=== PATIENT | male | born 1970 | race Caucasian/White ===

== ENCOUNTER 2017-09-20 15:45 | Emergency (ER) | payer SELFPAY ==
[~2017-09-20] VITALS: Ht 172.7 cm; Wt 65.0 kg
[2017-09-20 17:33] LABS: BASOPHILS % 0.4 % (0.0-2.0); EOSINOPHILS % 0.2 % (0.0-5.0); HEMATOCRIT. 32.7 % (42.0-52.0); HEMOGLOBIN. 10.9 g/dL (14.0-18.0); LYMPHOCYTES % 10.4 % (20.0-50.0); MEAN CORPUSCULAR HEMOGLOBIN 30.6 pg (28.0-32.0); MEAN CORPUSCULAR VOLUME 91.4 fL (80.0-94.0); MEAN PLATELET VOLUME 6.5 fl (7.4-10.4); MONOCYTES % 13.7 % (2.0-8.0); NEUTROPHILS % 75.3 % (40.0-76.0); PLATELET 467 x1000/uL (130-400); RED BLOOD CELL COUNT 3.57 mill/uL (4.7-6.1); RED CELL DISTRIBUTION WIDTH 15.5 % (11.6-14.6)
[2017-09-20 17:36] LABS: CHLORIDE 99 mEq/L (98-107)
[2017-09-20 17:39] LABS: INR 1.1; PROTHROMBIN TIME 11.5 sec (9.4-11.6)
[2017-09-20 18:22] VITALS: BP 106/61
== END 2017-09-20 19:23 | disposition left against medical advice (07) ==
LOC: ER 15:50 → EDBEDREQ 18:32 → ER 19:23 → ENRESERV 20:38 → CANBEDREQ 20:44
DX: A15.9 Respiratory tuberculosis unspecified (principal); J18.9 Pneumonia, unspecified organism; E87.1 Hypo-osmolality and hyponatremia; D64.9 Anemia, unspecified; E88.09 Other disorders of plasma-protein metabolism, not elsewhere classified; R00.0 Tachycardia, unspecified; R04.2 Hemoptysis; F17.200 Nicotine dependence, unspecified, uncomplicated; Z53.29 Procedure and treatment not carried out because of patient's decision for other reasons
CPT/HCPCS: 36415; 71045; 80053; 85025; 85610; 99285

== ENCOUNTER 2020-07-20 13:09 | Inpatient (IN) | payer MEDICAID ==
[~2020-07-20] VITALS: Ht 162.6 cm; Wt 58.7 kg
[2020-07-20] MEDS ORDERED: FAMOTIDINE 20MG/2ML VIAL IV STA (16:48)
[2020-07-20] MEDS ORDERED: ONDANSETRON HCL 4MG/2ML INJ IV STA (16:48)
[2020-07-20] MEDS ORDERED: MORPHINE SULFATE 4 MG/ML CPJ (NOT FOR IM USE) IV STA (16:48)
[2020-07-20] MEDS ORDERED: SODIUM CHLORIDE 0.9% 1,000 ML IV ONE ×2 (17:00→18:15)
[2020-07-20 17:13] LABS: BASOPHILS % 0.5 % (0.0-2.0); EOSINOPHILS % 0.1 % (0.0-5.0); HEMATOCRIT. 44.2 % (42.0-52.0); HEMOGLOBIN. 15.1 g/dL (14.0-18.0); LYMPHOCYTES % 9.9 % (20.0-50.0); MEAN CORPUSCULAR HEMOGLOBIN 30.6 pg (28.0-32.0); MEAN CORPUSCULAR VOLUME 89.9 fL (80.0-94.0); MEAN PLATELET VOLUME 7.5 fl (7.4-10.4); MONOCYTES % 3.3 % (2.0-8.0); NEUTROPHILS % 86.2 % (40.0-76.0); PLATELET 281 x1000/uL (130-400); RED BLOOD CELL COUNT 4.92 mill/uL (4.7-6.1); RED CELL DISTRIBUTION WIDTH 13.3 % (11.6-14.6)
[2020-07-20 17:14] LABS: CHLORIDE 101 mEq/L (98-107)
[2020-07-20 17:31] LABS: INR 1.2; PROTHROMBIN TIME 12.4 sec (9.6-11.0)
[2020-07-20] MEDS ORDERED: IOHEXOL-300 100 ML BOTTLE ONE (17:52)
[2020-07-20] MEDS ORDERED: DEXTROSE 50% WATER 50ML SYRINGE IV ONE (18:00)
[2020-07-20 18:22] LABS: CLARITY URINE CLEAR (CLEAR); COLOR URINE YELLOW (YELLOW); KETONES URINE 4+ (NEGATIVE); LEUKOCYTE ESTERASE URINE NEGATIVE (NEGATIVE); NITRITE URINE NEGATIVE (NEGATIVE); OCCULT BLOOD URINE NEGATIVE (NEGATIVE); PROTEIN URINE TRACE (NEGATIVE); SPECIFIC GRAVITY URINE 1.015 (1.005-1.030); UROBILINOGEN URINE 0.2 E.U./dL (0.2-1.0)
[2020-07-20] MEDS ORDERED: VANCOMYCIN 1 G PREMIX 200 ML IV ONE (19:45)
[2020-07-20] MEDS ORDERED: PIPERACILLIN/TAZ 3.375G PREMIX 50 ML IV ONE (19:45)
[2020-07-21 03:45] VITALS: BP 129/69
[2020-07-21] MEDS ORDERED: ONDANSETRON HCL 4MG/2ML INJ IV PRN (04:15)
[2020-07-21] MEDS: ACETAMINOPHEN 325MG TABLET PO PRN ×2 (04:21→20:20)
[2020-07-21 04:25] VITALS: BP 126/69
[2020-07-21] MEDS ORDERED: PIPERACILLIN/TAZOBACTAM 3.375 G/VIAL IV SCH (06:00)
[2020-07-21] MEDS ORDERED: PIPERACILLIN/TAZOBACTAM 3.375 G in DEXT 5% WATER 100 ML IV SCH (06:00)
[2020-07-21] MEDS: PANTOPRAZOLE 40MG DR TABLET PO SCH (06:34)
[2020-07-21 08:00] VITALS: BP 106/70
[2020-07-21] MEDS ORDERED: PNEUMOCOCCAL 23-VAL P-SAC VAC 0.5 ML IM ONE (08:00)
[2020-07-21] MEDS: VANCOMYCIN 1 G PREMIX 200 ML IV SCH ×2 (08:45→17:59)
[2020-07-21] MEDS: ENOXAPARIN 40MG/0.4ML SYR SUBCUT SCH (08:46)
[2020-07-21] MEDS: ONDANSETRON HCL 4MG/2ML INJ IV PRN (08:56)
[2020-07-21 09:09] LABS: BASOPHILS % 0.3 % (0.0-2.0); EOSINOPHILS % 0.2 % (0.0-5.0); HEMATOCRIT. 38.8 % (42.0-52.0); LYMPHOCYTES % 17.2 % (20.0-50.0); MEAN CORPUSCULAR HEMOGLOBIN 30.1 pg (28.0-32.0); MEAN CORPUSCULAR VOLUME 89.9 fL (80.0-94.0); MEAN PLATELET VOLUME 7.4 fl (7.4-10.4); MONOCYTES % 8.1 % (2.0-8.0); NEUTROPHILS % 74.2 % (40.0-76.0); PLATELET 220 x1000/uL (130-400); RED BLOOD CELL COUNT 4.31 mill/uL (4.7-6.1); RED CELL DISTRIBUTION WIDTH 13.2 % (11.6-14.6)
[2020-07-21 09:18] LABS: CHLORIDE 99 mEq/L (98-107)
[2020-07-21] MEDS: HYDROCODONE/ACETAMINOPHEN 5/325MG TABLET PO PRN (11:23)
[2020-07-21 12:00] VITALS: BP 105/69
[2020-07-21] MEDS: METOCLOPRAMIDE HCL 10MG/2ML VIAL IV SCH ×2 (13:49→17:59)
[2020-07-21] MEDS: DEXT 5%/0.9% NACL 1,000 ML IV SCH (13:49)
[2020-07-21] MEDS ORDERED: FOLIC ACID 1 MG, THIAMINE HCL 100 MG, MVI, ADULT NO.1 10 ML in DEXTROSE 5% WATER 1,000 ML IV SCH (14:00)
[2020-07-21 16:00] VITALS: BP 105/69
[2020-07-21 20:00] VITALS: BP 118/76
[2020-07-22] VITALS: BP 112/68
[2020-07-22] MEDS ORDERED: ZOLPIDEM TARTRATE 5MG TABLET PO PRN (00:30)
[2020-07-22] MEDS: VANCOMYCIN 1 G PREMIX 200 ML IV SCH ×2 (00:40→08:56)
[2020-07-22] MEDS: METOCLOPRAMIDE HCL 10MG/2ML VIAL IV SCH ×4 (00:40→17:21)
[2020-07-22] MEDS: DEXT 5%/0.9% NACL 1,000 ML IV SCH ×2 (03:28→15:10)
[2020-07-22 04:00] VITALS: BP 127/84
[2020-07-22 06:13] LABS: CHLORIDE 98 mEq/L (98-107)
[2020-07-22 06:22] LABS: PHOSPHORUS 1.9 mg/dL (2.5-4.9)
[2020-07-22] MEDS: PANTOPRAZOLE 40MG DR TABLET PO SCH (06:33)
[2020-07-22 06:40] LABS: HEPATITIS B SURFACE ANTIGEN NEGATIVE
[2020-07-22 07:10] LABS: HEPATITIS A AB IGM NEGATIVE (NEGATIVE)
[2020-07-22 08:00] VITALS: BP 96/60
[2020-07-22] MEDS: ENOXAPARIN 40MG/0.4ML SYR SUBCUT SCH (08:57)
[2020-07-22] MEDS ORDERED: POTASSIUM CHLORIDE 20MEQ TABLET SR PO SCH (09:00)
[2020-07-22] MEDS ORDERED: POTASSIUM CHLORIDE INJ 40 MEQ in DEXT 5% WATER 250 ML IV SCH (10:00)
[2020-07-22] MEDS: HYDROCODONE/ACETAMINOPHEN 5/325MG TABLET PO PRN (12:09)
[2020-07-22] MEDS ORDERED: FOLIC ACID 1 MG, THIAMINE HCL 100 MG, MVI, ADULT NO.1 10 ML in DEXTROSE 5% WATER 1,000 ML IV SCH (14:00)
[2020-07-22] MEDS ORDERED: BISACODYL 5MG TABLET PO NR (14:30)
[2020-07-22] MEDS ORDERED: SODIUM PHOS,M-BASIC-D-BASIC 15 MM in DEXT 5% WATER 245 ML IV NR (16:00)
[2020-07-22] MEDS ORDERED: PANT40TA51 PO (16:18)
[2020-07-22] MEDS ORDERED: THIA100T88 MT (16:18)
[2020-07-22 20:00] VITALS: BP 104/73
[2020-07-23] VITALS: BP 101/64
[2020-07-23] MEDS: METOCLOPRAMIDE HCL 10MG/2ML VIAL IV SCH ×3 (00:33→11:20)
[2020-07-23 04:00] VITALS: BP 90/55
[2020-07-23] MEDS: DEXT 5%/0.9% NACL 1,000 ML IV SCH (04:30)
[2020-07-23 06:42] LABS: BASOPHILS % 0.3 % (0.0-2.0); EOSINOPHILS % 2.2 % (0.0-5.0); HEMATOCRIT. 40.7 % (42.0-52.0); HEMOGLOBIN. 14.1 g/dL (14.0-18.0); LYMPHOCYTES % 21.8 % (20.0-50.0); MEAN CORPUSCULAR HEMOGLOBIN 30.3 pg (28.0-32.0); MEAN CORPUSCULAR VOLUME 87.5 fL (80.0-94.0); MEAN PLATELET VOLUME 8.1 fl (7.4-10.4); MONOCYTES % 7.8 % (2.0-8.0); NEUTROPHILS % 67.9 % (40.0-76.0); PLATELET 137 x1000/uL (130-400); RED BLOOD CELL COUNT 4.65 mill/uL (4.7-6.1)
[2020-07-23 06:47] LABS: CHLORIDE 100 mEq/L (98-107)
[2020-07-23] MEDS: PANTOPRAZOLE 40MG DR TABLET PO SCH (06:47)
[2020-07-23 07:02] LABS: PHOSPHORUS 2.5 mg/dL (2.5-4.9)
[2020-07-23 08:00] VITALS: BP 104/70
[2020-07-23] MEDS ORDERED: POTASSIUM CHLORIDE 20MEQ TABLET SR PO NR (08:00)
[2020-07-23] MEDS: ENOXAPARIN 40MG/0.4ML SYR SUBCUT SCH (08:41)
[2020-07-23] MEDS: ONDANSETRON HCL 4MG/2ML INJ IV PRN (08:41)
[2020-07-23] MEDS: HYDROCODONE/ACETAMINOPHEN 5/325MG TABLET PO PRN (08:44)
[2020-07-23 12:00] VITALS: BP 121/82
[2020-07-23 13:28] VITALS: BP 121/82
[2020-07-24] MEDS ORDERED: FAMOTIDINE 20MG TABLET PO SCH (07:10)
[2020-08-02] MEDS ORDERED: ONDA4TAB5 MT (11:58)
[2020-08-02] MEDS ORDERED: OMEP20CA14 MT (11:58)
[2020-08-05] MEDS ORDERED: FOLI-43 PO (10:57)
[2020-08-05] MEDS ORDERED: MULT-230 MT (10:57)
[2020-08-05] MEDS ORDERED: L25 PO (10:57)
== END 2020-07-23 14:00 | disposition home or self-care (01) | DRG 282 ==
LOC: ER 13:09 → 8WST 21:06 → ENRESERV 22:06
PROVIDERS: ADMIT Internal Medicine; ATTEND Internal Medicine
DX: K86.0 Alcohol-induced chronic pancreatitis (principal); E87.2 Acidosis; K76.0 Fatty (change of) liver, not elsewhere classified; K86.9 Disease of pancreas, unspecified; K86.2 Cyst of pancreas; E87.1 Hypo-osmolality and hyponatremia; D64.9 Anemia, unspecified; E16.2 Hypoglycemia, unspecified; F10.10 Alcohol abuse, uncomplicated; J98.11 Atelectasis; Z59.0 Homelessness
CPT/HCPCS: 36415; 71045; 74177; 76700; 80048; 80053; 80202; 81003; 82140; 82247; 82248; 82962; 83605; 83735; 84100; 84145; 84450; 84484; 85025; 86301; 86705; 86709; 86803; 87340; 90732; 93005; 97162; 99291; C1893; J1650; J2270; J2405; J2543; J2765; J3370; J3411; J3480; J3490; J7030; J7040; J7042; J7060; J7070; Q9967

== ENCOUNTER 2020-08-19 10:43 | Emergency (ER) | payer MEDICAID, OTHER ==
[~2020-08-19] VITALS: Ht 165.1 cm; Wt 76.0 kg
[~2020-08-19 10:43] MED LIST: FOLI-43 PO; L25 PO; MULT-230 MT; ONDA4TAB5 MT; PANT40TA51 PO; THIA100T88 MT
[2020-08-19] MEDS ORDERED: MORPHINE SULFATE 4 MG/ML CPJ (NOT FOR IM USE) IV STA (11:55)
[2020-08-19] MEDS ORDERED: ONDANSETRON HCL 4MG/2ML INJ IV STA (11:55)
[2020-08-19] MEDS ORDERED: SODIUM CHLORIDE 0.9% 1,000 ML IV ONE (12:00)
[2020-08-19 12:18] LABS: CHLORIDE 101 mEq/L (98-107)
[2020-08-19 12:22] LABS: INR 1.1; PROTHROMBIN TIME 11.5 sec (9.6-11.0)
[2020-08-19 12:24] LABS: ETHANOL BLOOD 243 mg/dL
[2020-08-19 12:43] LABS: CLARITY URINE CLEAR (CLEAR); COLOR URINE YELLOW (YELLOW); KETONES URINE TRACE (NEGATIVE); LEUKOCYTE ESTERASE URINE NEGATIVE (NEGATIVE); NITRITE URINE NEGATIVE (NEGATIVE); OCCULT BLOOD URINE NEGATIVE (NEGATIVE); PH URINE 6.5 (4.5-8.0); PROTEIN URINE NEGATIVE (NEGATIVE); SPECIFIC GRAVITY URINE 1.006 (1.005-1.030)
[2020-08-19 12:59] LABS: *AMPHETAMINES SCREEN URINE NEGATIVE (NEGATIVE); *BARBITURATES SCREEN URINE NEGATIVE (NEGATIVE); *BENZODIAZEPINES SCREEN URINE PRESUMTIVE POSITIVE (NEGATIVE); *COCAINE SCREEN URINE NEGATIVE (NEGATIVE); METHADONE URINE SCREEN NEGATIVE (NEGATIVE); OPIATES URINE SCREEN NEGATIVE (NEGATIVE)
[2020-08-19 13:00] LABS: CANNABINOID URINE SCREEN NEGATIVE (NEGATIVE); PHENCYCLIDINE URINE SCREEN NEGATIVE (NEGATIVE)
[2020-08-19 13:02] LABS: BASOPHILS % 0.6 % (0.0-2.0); EOSINOPHILS % 0.9 % (0.0-5.0); HEMATOCRIT. 40.4 % (42.0-52.0); HEMOGLOBIN. 13.8 g/dL (14.0-18.0); LYMPHOCYTES % 19.8 % (20.0-50.0); MEAN CORPUSCULAR HEMOGLOBIN 30.4 pg (28.0-32.0); MEAN CORPUSCULAR VOLUME 89.3 fL (80.0-94.0); MEAN PLATELET VOLUME 7.1 fl (7.4-10.4); MONOCYTES % 8.7 % (2.0-8.0); PLATELET 112 x1000/uL (130-400); RED BLOOD CELL COUNT 4.52 mill/uL (4.7-6.1); RED CELL DISTRIBUTION WIDTH 16.7 % (11.6-14.6)
[2020-08-19] MEDS ORDERED: ONDANSETRON HCL 4MG/2ML INJ IV ONE (15:00)
[2020-08-19] MEDS ORDERED: IOHEXOL-300 100 ML BOTTLE ONE (16:15)
[2020-08-19] MEDS ORDERED: LORA2TAB95 PO (16:48)
[2020-08-19] MEDS ORDERED: TRAM50TA3 MT (16:48)
[2020-08-19] MEDS ORDERED: ONDA4TAB5 MT (16:48)
[2020-08-19] MEDS ORDERED: LORA2TAB95 MT (16:48)
[2020-08-19 17:35] VITALS: BP 128/66
== END 2020-08-19 17:40 | disposition home or self-care (01) ==
LOC: ER 10:43
DX: F10.239 Alcohol dependence with withdrawal, unspecified (principal); K86.1 Other chronic pancreatitis; Y90.8 Blood alcohol level of 240 mg/100 ml or more
CPT/HCPCS: 36415; 71045; 74177; 80053; 80305; 80320; 81003; 83690; 83880; 84484; 85025; 85610; 93005; 96361; 96374; 96375; 96376; 99285; J2270; J2405; J7030; Q9967; G0480

== ENCOUNTER 2020-10-31 11:47 | Inpatient (IN) | payer MEDICAID, OTHER ==
[~2020-10-31] VITALS: Ht 165.1 cm; Wt 59.0 kg
[~2020-10-31 11:47] MED LIST changes: +LORA2TAB95 PO; +TRAM50TA3 MT
[2020-10-31 17:36] LABS: CLARITY URINE CLEAR (CLEAR); COLOR URINE DARK YELLOW (YELLOW); KETONES URINE 3+ (NEGATIVE); LEUKOCYTE ESTERASE URINE TRACE (NEGATIVE); NITRITE URINE NEGATIVE (NEGATIVE); OCCULT BLOOD URINE NEGATIVE (NEGATIVE); PROTEIN URINE 2+ (NEGATIVE); SPECIFIC GRAVITY URINE 1.018 (1.005-1.030)
[2020-10-31] MEDS ORDERED: PANTOPRAZOLE SODIUM 40 MG/VIAL IV STA (18:11)
[2020-10-31] MEDS ORDERED: MORPHINE SULFATE 4 MG/ML CPJ (NOT FOR IM USE) IV STA (18:11)
[2020-10-31] MEDS ORDERED: SODIUM CHLORIDE 0.9% 1,000 ML IV ONE (18:15)
[2020-10-31 18:29] LABS: BASOPHILS % 0.2 % (0.0-2.0); EOSINOPHILS % 0.1 % (0.0-5.0); HEMATOCRIT. 42.2 % (42.0-52.0); HEMOGLOBIN. 14.4 g/dL (14.0-18.0); LYMPHOCYTES % 13.3 % (20.0-50.0); MEAN CORPUSCULAR HEMOGLOBIN 30.3 pg (28.0-32.0); MEAN PLATELET VOLUME 7.5 fl (7.4-10.4); MONOCYTES % 7.1 % (2.0-8.0); NEUTROPHILS % 79.3 % (40.0-76.0); PLATELET 110 x1000/uL (130-400); RED BLOOD CELL COUNT 4.74 mill/uL (4.7-6.1); RED CELL DISTRIBUTION WIDTH 19.3 % (11.6-14.6)
[2020-10-31 18:36] LABS: INR 1.1; PROTHROMBIN TIME 11.6 sec (9.6-11.0)
[2020-10-31 18:39] LABS: CHLORIDE 95 mEq/L (98-107)
[2020-10-31] MEDS ORDERED: CEFTRIAXONE 1 G PREMIX 50 ML IV ONE (19:30)
[2020-10-31] MEDS ORDERED: DEXT 5%/0.9% NACL 1,000 ML IV ONE (19:30)
[2020-10-31] MEDS ORDERED: MORPHINE SULFATE 4 MG/ML CPJ (NOT FOR IM USE) IV ONE (19:30)
[2020-10-31] MEDS ORDERED: FOLIC ACID 1 MG, THIAMINE HCL 100 MG, MVI, ADULT NO.1 10 ML in DEXTROSE 5% WATER 1,000 ML IV ONE (19:30)
[2020-10-31] MEDS ORDERED: CHLORDIAZEPOXIDE 25MG CAPSULE PO SCH (22:00)
[2020-10-31] MEDS: CHLORDIAZEPOXIDE 5 MG CAPSULE PO SCH (23:08)
[2020-11-01] MEDS: ONDANSETRON HCL 4MG/2ML INJ IV PRN ×2 (01:50→06:16)
[2020-11-01] MEDS: MORPHINE SULFATE 2 MG/ML CPJ (NOT FOR IM USE) IV PRN ×2 (01:50→06:16)
[2020-11-01] MEDS: CHLORDIAZEPOXIDE 5 MG CAPSULE PO SCH (06:15)
[2020-11-01] MEDS ORDERED: NALOXONE HCL 0.4MG/ML VIAL IV PRN (07:30)
[2020-11-01 12:00] VITALS: BP 115/79
[2020-11-01 15:14] VITALS: BP 115/79
[2020-11-01 16:00] VITALS: BP 103/78
[2020-11-01 20:00] VITALS: BP 102/68
[2020-11-01] MEDS: HYDROCODONE/ACETAMINOPHEN 5/325MG TABLET PO PRN (21:08)
[2020-11-02] VITALS: BP 106/69
[2020-11-02 04:00] VITALS: BP 107/70
[2020-11-02 08:00] VITALS: BP 80/53
[2020-11-02] MEDS: THIAMINE HCL 100MG TABLET PO SCH (09:21)
[2020-11-02] MEDS: PANTOPRAZOLE SODIUM 40 MG/VIAL IV SCH (09:21)
[2020-11-02] MEDS ORDERED: MULT-230 MT (11:10)
[2020-11-02] MEDS ORDERED: FOLI-43 PO (11:10)
[2020-11-02] MEDS ORDERED: PANT40TA51 PO (11:10)
[2020-11-02] MEDS ORDERED: THIA100T88 MT (11:10)
[2020-11-02 12:00] VITALS: BP 105/73
[2020-11-02] MEDS ORDERED: LORAZEPAM 2MG/ML CPJ IV PRN (12:15)
[2020-11-02] MEDS: CHLORDIAZEPOXIDE 5 MG CAPSULE PO SCH ×2 (13:31→21:05)
[2020-11-02 16:00] VITALS: BP 89/53
[2020-11-02 18:00] LABS: HEMATOCRIT. 40.4 % (42.0-52.0); HEMOGLOBIN. 13.8 g/dL (14.0-18.0); MEAN CORPUSCULAR HEMOGLOBIN 30.4 pg (28.0-32.0); MEAN CORPUSCULAR VOLUME 89.3 fL (80.0-94.0); MEAN PLATELET VOLUME 8.5 fl (7.4-10.4); PLATELET 66 x1000/uL (130-400); RED BLOOD CELL COUNT 4.52 mill/uL (4.7-6.1); RED CELL DISTRIBUTION WIDTH 19.1 % (11.6-14.6)
[2020-11-02 18:11] LABS: CHLORIDE 96 mEq/L (98-107)
[2020-11-02] MEDS: ACETAMINOPHEN 325MG TABLET PO PRN ×2 (18:12→23:57)
[2020-11-02] MEDS: LEVOFLOXACIN 500MG PREMIX 100 ML IV SCH (18:13)
[2020-11-02 19:40] LABS: PLATELET ESTIMATE DECREASED
[2020-11-02 20:00] VITALS: BP 119/67
[2020-11-02] MEDS ORDERED: POTASSIUM CHLORIDE 20MEQ TABLET SR PO NR (20:00)
[2020-11-03] VITALS: BP 90/60
[2020-11-03 04:00] VITALS: BP 100/69
[2020-11-03] MEDS: CHLORDIAZEPOXIDE 5 MG CAPSULE PO SCH ×3 (05:09→21:16)
[2020-11-03 08:00] VITALS: BP 98/62
[2020-11-03] MEDS: PANTOPRAZOLE SODIUM 40 MG/VIAL IV SCH (09:06)
[2020-11-03] MEDS: THIAMINE HCL 100MG TABLET PO SCH (09:06)
[2020-11-03] MEDS: ACETAMINOPHEN 325MG TABLET PO PRN (09:07)
[2020-11-03 12:00] VITALS: BP 85/52
[2020-11-03 16:00] VITALS: BP 93/70
[2020-11-03 16:17] LABS: HEMATOCRIT. 39.7 % (42.0-52.0); HEMOGLOBIN. 13.4 g/dL (14.0-18.0); MEAN CORPUSCULAR HEMOGLOBIN 30.3 pg (28.0-32.0); MEAN CORPUSCULAR VOLUME 89.5 fL (80.0-94.0); MEAN PLATELET VOLUME 9.1 fl (7.4-10.4); RED BLOOD CELL COUNT 4.44 mill/uL (4.7-6.1); RED CELL DISTRIBUTION WIDTH 19.3 % (11.6-14.6)
[2020-11-03 16:30] LABS: PLATELET 50 x1000/uL (130-400)
[2020-11-03 16:37] LABS: CHLORIDE 99 mEq/L (98-107)
[2020-11-03 17:11] LABS: PLATELET ESTIMATE MARKEDLY DECREASED
[2020-11-03] MEDS: LEVOFLOXACIN 500MG PREMIX 100 ML IV SCH (18:16)
[2020-11-03] MEDS: HYDROCODONE/ACETAMINOPHEN 5/325MG TABLET PO PRN (18:45)
[2020-11-03 20:00] VITALS: BP 102/74
[2020-11-04] VITALS: BP 93/60
[2020-11-04 04:00] VITALS: BP 95/59
[2020-11-04] MEDS: CHLORDIAZEPOXIDE 5 MG CAPSULE PO SCH ×3 (05:02→21:16)
[2020-11-04 08:00] VITALS: BP 86/51
[2020-11-04] MEDS: PANTOPRAZOLE SODIUM 40 MG/VIAL IV SCH (09:03)
[2020-11-04] MEDS: THIAMINE HCL 100MG TABLET PO SCH (09:03)
[2020-11-04] MEDS ORDERED: LEVO500T89 MT (10:44)
[2020-11-04 10:57] LABS: HEMOGLOBIN. 13.1 g/dL (14.0-18.0); MEAN CORPUSCULAR HEMOGLOBIN 29.9 pg (28.0-32.0); MEAN CORPUSCULAR VOLUME 91.2 fL (80.0-94.0); MEAN PLATELET VOLUME 8.9 fl (7.4-10.4); PLATELET 59 x1000/uL (130-400); RED BLOOD CELL COUNT 4.38 mill/uL (4.7-6.1); RED CELL DISTRIBUTION WIDTH 19.4 % (11.6-14.6)
[2020-11-04 11:09] LABS: CHLORIDE 101 mEq/L (98-107)
[2020-11-04 11:15] LABS: PHOSPHORUS 2.9 mg/dL (2.5-4.9)
[2020-11-04 12:00] VITALS: BP 80/55
[2020-11-04] MEDS ORDERED: POTASSIUM CHLORIDE 20MEQ TABLET SR PO NR (12:00)
[2020-11-04] MEDS ORDERED: SODIUM CHLORIDE 0.9% 1000ML BAG (SEPSIS BOLUS) IV ONE (12:45)
[2020-11-04] MEDS ORDERED: SODIUM CHLORIDE 0.9% 500 ML IV SCH (12:45)
[2020-11-04 16:00] VITALS: BP 88/61
[2020-11-04] MEDS: LEVOFLOXACIN 500MG PREMIX 100 ML IV SCH (17:37)
[2020-11-04 17:52] LABS: PLATELET ESTIMATE DECREASED
[2020-11-04 20:00] VITALS: BP 93/62
[2020-11-05] VITALS: BP 96/63
[2020-11-05 04:00] VITALS: BP 96/65
[2020-11-05] MEDS: CHLORDIAZEPOXIDE 5 MG CAPSULE PO SCH (05:32)
[2020-11-05 08:00] VITALS: BP 90/50
[2020-11-05] MEDS: PANTOPRAZOLE SODIUM 40 MG/VIAL IV SCH (08:59)
[2020-11-05] MEDS: THIAMINE HCL 100MG TABLET PO SCH (08:59)
[2020-11-05 10:19] VITALS: BP 90/50
== END 2020-11-05 11:00 | disposition home or self-care (01) | DRG 720 ==
LOC: ER 11:47 → MICUSO 22:42 → 6EST 11-01 07:25
PROVIDERS: ADMIT Internal Medicine; ATTEND Internal Medicine
DX: A41.9 Sepsis, unspecified organism (principal); E87.8 Other disorders of electrolyte and fluid balance, not elsewhere classified; K76.0 Fatty (change of) liver, not elsewhere classified; E87.1 Hypo-osmolality and hyponatremia; F17.210 Nicotine dependence, cigarettes, uncomplicated; Z20.822 Contact with and (suspected) exposure to COVID-19; K86.1 Other chronic pancreatitis; F10.10 Alcohol abuse, uncomplicated; Y90.9 Presence of alcohol in blood, level not specified; K86.89 Other specified diseases of pancreas; Z82.49 Family history of ischemic heart disease and other diseases of the circulatory system; Z79.899 Other long term (current) drug therapy; Z71.6 Tobacco abuse counseling; Z71.41 Alcohol abuse counseling and surveillance of alcoholic
CPT/HCPCS: 36415; 71045; 74176; 80048; 80053; 81003; 83735; 84100; 84145; 84484; 85025; 87426; 99285; C9113; J0696; J1956; J2270; J2405; J3411; J3490; J7030; J7040; J7042; J7070